=== PATIENT | male | born 1995 | race American Indian/Alaskan Native ===

== ENCOUNTER 2022-01-23 15:07 | Emergency (ER) | payer OTHER ==
[2022-01-23] MEDS ORDERED: ceFAZolin/NS 1 GM/50 ML 1 GM/50 ML BAG IV ONE (15:14)
[2022-01-23] MEDS ORDERED: SODIUM CHLORIDE 0.9% 1000 ML 1,000 ML IV ONE (15:14)
[2022-01-23] MEDS ORDERED: TETANUS,DIPH,PERTUSS(ACELL) VACCINE 0.5 ML SYRINGE IM ONE (15:14)
[2022-01-23] MEDS ORDERED: ONDANSETRON 4 MG/2 ML INJ IV ONE (15:16)
[2022-01-23] MEDS ORDERED: fentaNYL 100 MCG/2 ML INJ IV ONE (15:16)
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
[2022-01-23 16:02] LABS: BUN/Creatinine Ratio 10; Blood Urea Nitrogen 9 mg/dL (9-20); Calcium 9.6 mg/dL (8.4-10.2); Hemolysis Index 6
[2022-01-23 16:04] LABS: Basophils # (Auto) 0.1 K/mm3 (0.0-0.1); Basophils % (Auto) 1.7 % (0.0-1.8); Eosinophils # (Auto) 0.2 K/mm3 (0.0-0.4); Eosinophils % (Auto) 4.7 % (0.0-4.3); Hematocrit 42.9 % (35.5-45.6); Hemoglobin 13.7 gm/dl (11.8-15.2); Lymphocytes # (Auto) 1.5 K/mm3 (1.2-5.4); Lymphocytes % (Auto) 37.9 % (13.4-35.0); Mean Corpuscular HGB Conc 32 % (32-34); Mean Corpuscular Volume 83 fl (84-94); Monocytes # (Auto) 0.4 K/mm3 (0.0-0.8); Platelet Count 173 K/mm3 (140-440); Red Blood Count 5.18 M/mm3 (3.65-5.03); Red Cell Distribution Width 13.8 % (13.2-15.2)
[2022-01-23 17:39] VITALS: BP 110/65
[2022-01-23] MEDS ORDERED: HYDROmorphone 1 MG/1 ML INJ IV ONE (18:03)
[2022-01-23] MEDS ORDERED: HYDROmorphone 1 MG/1 ML INJ ONE (18:05)
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
[2022-01-23] MEDS ORDERED: SODIUM CHLORIDE 0.9% IRR 500 ML BOTTLE IR ONE (19:37)
[2022-01-23] MEDS ORDERED: LIDOCAINE 2%/EPINEPHRINE 1:100,000 VIAL (20 ML) INFILTRATI ONE (19:37)
[2022-01-23] MEDS ORDERED: BACITRACIN ZINC OINT 28.4 GM TP ONE (20:29)
== END 2022-01-23 21:34 | disposition home or self-care (01) ==
LOC: ED 15:07
DX: S41.112A Laceration without foreign body of left upper arm, initial encounter (principal); W26.8XXA Contact with other sharp object(s), not elsewhere classified, initial encounter; Y93.89 Activity, other specified; Y92.89 Other specified places as the place of occurrence of the external cause; Y99.8 Other external cause status
CPT/HCPCS: 12031; 36415; 73206; 80048; 85025; 90471; 90715; 96365; 96375; 99282; J0690; J1170; J2405; J3010; J3490; J7030; Q9967